=== PATIENT | female | born 1950 | race Caucasian/White ===

== ENCOUNTER 2021-02-09 08:11 | Day surgery (SDC) | payer MEDICARE, BC, OTHER ==
[~2021-02-09] VITALS: Ht 167.6 cm; Wt 62.6 kg
[2021-02-09] VITALS (8 sets, daily range): BP systolic 123–140; BP diastolic 69–87
[~2021-02-09 08:11] MED LIST: AMLO1TAB24 PO; CYAN500T14 PO; D31000TA2 PO; EFFE150C2 PO; LR 1,000 ML IV ONE; POTA10808 PO; SERO1TAB2 PO; TEST200I14 IM; XALA0.007 OU
[2021-02-09] MEDS ORDERED: ceFAZolin 1GM VIAL (J0690 PER 500MG) As Ordered ONE (08:27)
[2021-02-09] MEDS ORDERED: LIDOCAINE 2% 100MG/5ML SDV (FOR ANES.) As Ordered ONE (08:47)
[2021-02-09] MEDS ORDERED: ROCURONIUM BROMIDE 50 MG/5 ML VIAL As Ordered ONE ×3 (08:47→11:58)
[2021-02-09] MEDS ORDERED: propofoL 200 MG/20 ML VIAL As Ordered ONE (08:47)
[2021-02-09] MEDS ORDERED: dexameTHASONE 4 MG/ML 1ML VIAL (J1100 PER 1MG) As Ordered ONE (08:47)
[2021-02-09] MEDS ORDERED: ONDANSETRON 4MG/2ML VIAL As Ordered ONE (08:47)
[2021-02-09] MEDS ORDERED: MIDAZOLAM INJ 2MG/2ML VIAL (J2250 PER 1MG) As Ordered ONE (08:48)
[2021-02-09] MEDS ORDERED: fentaNYL 250 MCG/5 ML INJECTION (J3010) As Ordered ONE (08:48)
[2021-02-09] MEDS ORDERED: HEPARIN SOD (PORCINE) 5000UNITS/ML 1ML VIAL/SYRINGE SQ ONE (09:00)
[2021-02-09] MEDS ORDERED: ceFAZolin SOD 1 GM in D5W MINI-BAG PLUS 50 ML IV ONE (09:00)
[2021-02-09] MEDS ORDERED: BUPIVACAINE LIPOSOME/PF 1.3% 20ML VIAL (13.3MG/ML)(EXPAREL)(C9290 PER1MG) As Ordered ONE (09:38)
[2021-02-09] MEDS ORDERED: BACITRACIN PWD 50,000 UNITS VIAL As Ordered ONE (09:38)
[2021-02-09] MEDS ORDERED: LIDOCAINE 1% MDV 20ML VIAL As Ordered ONE (09:51)
[2021-02-09] MEDS ORDERED: EPINEPHrine INJ 1 MG/ML 1ML AMP As Ordered ONE (09:51)
[2021-02-09] MEDS ORDERED: HEPARIN SOD (PORCINE) 5000UNITS/ML 1ML VIAL/SYRINGE As Ordered ONE (10:42)
[2021-02-09] MEDS ORDERED: ePHEDrine SULFATE 25 MG/5 ML(5MG/ML) SYRINGE As Ordered ONE (11:39)
[2021-02-09] MEDS ORDERED: LABETALOL 100MG/20ML VIAL As Ordered ONE (12:05)
--- NOTE | 2021-02-09 14:04 | POST-OPPD ---
Postoperative Procedure Note Date Of Procedure: Feb 09, 2021 PREOPERATIVE DIAGNOSIS: Gender dysphoria, breast hypertrophy POSTOPERATIVE DIAGNOSIS: same FINDINGS: female chest distribution PROCEDURE: Chest masculinization procedure, bilateral subcutaneous mastectomies with suction assisted lipectomy and free nipple graft. SURGEON: Dr De Jesus ANESTHESIA: General SPECIMENS: Right breast 417gm, Left breast 419 gm ESTIMATED BLOOD LOSS: 50cc REPLACED: none DRAINS: 10 mm ADEBAYO x 2 COMPLICATIONS: none POSTOPERATIVE CONDITION: stable DEDRA DE JESUS DO Feb 09, 2021 14:04
[2021-02-09] MEDS ORDERED: HYDROMORPHONE HCL 0.5 MG/ 0.5 ML SYRINGE (J1170 PER 1) IV PRN (14:05)
[2021-02-09] MEDS ORDERED: oxyCODONE 5MG TAB PO PRN (14:05)
[2021-02-09] MEDS ORDERED: fentaNYL 100 MCG/2 ML INJECTION (J3010) IV PRN (14:05)
[2021-02-09] MEDS ORDERED: KETOROLAC TROMETHAMINE 10 MG TAB PO PRN (14:05)
[2021-02-09] MEDS ORDERED: ONDANSETRON 4MG/2ML VIAL IV PRN ×2 (14:05)
[2021-02-09] MEDS ORDERED: traMADol 50 MG TAB PO PRN (14:05)
[2021-02-09] MEDS ORDERED: LR 1,000 ML IV SCH (14:05)
[2021-02-09] MEDS ORDERED: ACETAMINOPHEN TAB 650MG DOSE (2X325MG) PO PRN (14:05)
--- NOTE | 2021-02-09 14:05 | ROOPDOC ---
[facility] Report Of Operation Report of Operation DATE OF PROCEDURE: 02/09/21 PREOPERATIVE DIAGNOSIS: Gender dysphoria, breast hypertrophy POSTOPERATIVE DIAGNOSIS: same FINDINGS: female chest distribution PROCEDURE: Chest masculinization procedure, bilateral subcutaneous mastectomies with suction assisted lipectomy and free nipple graft. SURGEON: Dr De Jesus ANESTHESIA: General SPECIMENS: Right breast 417gm, Left breast 419 gm ESTIMATED BLOOD LOSS: 50cc REPLACED: none DRAINS: 10 mm ADEBAYO x 2 COMPLICATIONS: none POSTOPERATIVE CONDITION: stable DESCRIPTION OF PROCEDURE: This is a 70-year-old transgender male who would like to have chest masculinization procedure. Patient fits the criteria for the procedure. He has stopped testosterone 3 weeks ago. Risks, benefits, and alternatives were discussed with the patient in detail, and he is ready to proceed. The day of surgery, he was marked in the upright position and informed consent was obtained. He measured any 19 cm from sternal notch to nipple on both sides, IMF at 25 cm bilaterally. Patient was marked according to double incision subcutaneous mastectomy. He was brought into the operating room and placed in the supine position. Preoperative antibiotics and 5000 units heparin subcutaneous were given. Sequential pneumatic stocking were placed on the lower calves. General anesthesia was induced. He was prepped and draped in the usual sterile fashion. We started our procedure on the right side. Nipple areolar complex was outlined 20 mm in diameter. Superior incision carried out followed by the inframammary incision. Dissection continued by undermining the flap with thick edges from the superior incision toward the midportion of the pectoralis major, then the breast was removed along the pectoralis fascia. Inframammary groove was obliterated, to smooth out the chest appearance. Total weight on the right side is 417 grams. Hemostasis was obtained using electrocautery. We used Exparel 8 cc for local anesthesia to infiltrate in the Pectoralis muscle. Started closing the flap with interrupted 0 Vicryl sutures. 10 mm Tejas-Benton drain was placed through the lateral part of the horizontal scar. 100 mL of tumescent solution was infiltrated on the lateral chest and medial part of the incision. VASER liposuction carried out on both areas followed by suction-assisted lipectomy to smooth out the contour of the lateral chest and medial breast. Then we turn our attention to the left side. Nipple areolar complex was outlined 20 mm in diameter. Superior incision carried out followed by the inframammary incision. Dissection continued by undermining the flap with thick edges from the superior incision toward the midportion of the pectoralis major, then the breast was removed along the pectoralis fascia. Inframammary groove was obliterated, to smooth out the chest appearance. Total weight on the right side is 419 grams. Hemostasis was obtained using electrocautery. We used Exparel 8 cc for local anesthesia to infiltrate in the Pectoralis muscle. Started closing the flap with interrupted 0 Vicryl sutures. 10 mm Tejas-Benton drain was placed through the lateral part of the horizontal scar. 100 mL of tumescent solution was infiltrated on the lateral chest and medial part of the incision. VASER liposuction carried out on both areas followed by suction-assisted lipectomy to smooth out the contour of the lateral chest and medial breast. Breast tissue removed was stored on the sterile table. At this point we harvested the nipple areolar complex from each breast. Tissue was defatted and transferred to a chest as a free graft. Location of the nipple is 2.4 cm from inframammary line. Skin opening was made 1.5 x 2.4 cm in oblong overall shape. Nipple areolar complex graft was secured in place with interrupted 4-0 and 5-0 chromic sutures. Bolster dressing was applied and secured in place with 4-0 nylon sutures. Remaining Exparel injected in the horizontal incision. Total Exparel use 16 cc. Resected tissue sent to pathology in two specimens right and left breast tissue. Dressings were applied to vertical and horizontal incision: Prineo, bulky dressing and binder. Patient was extubated in the operating room without difficulty and was transferred to the recovery room in stable condition. DEDRA DE JESUS DO Feb 09, 2021 14:05
[2021-02-09] MEDS: LR 1,000 ML IV SCH (16:25)
[2021-02-09] MEDS: VITAMIN D 1,000 INTERNATIONAL UNITS TABLET PO SCH (16:26)
[2021-02-09] MEDS: VENLAFAXINE **XR** 75MG CAPSULE PO SCH (16:26)
[2021-02-09] MEDS: CYANOCOBALAMIN 500 MCG TAB PO SCH (16:27)
[2021-02-09] MEDS ORDERED: LATANOPROST 0.005% OPHTH SOLN 2.5 ML OU SCH (21:00)
[2021-02-09] MEDS ORDERED: QUEtiapine FUMARATE 100 MG TAB PO SCH (21:00)
[2021-02-09] MEDS ORDERED: amLODIPine 5 MG TAB PO SCH (21:00)
[2021-02-10 02:00] VITALS: BP 104/60
[2021-02-10] MEDS: LR 1,000 ML IV SCH (02:00)
[2021-02-10 02:16] VITALS: BP 100/59
[2021-02-10 06:00] VITALS: BP 103/59
[2021-02-10] MEDS: CYANOCOBALAMIN 500 MCG TAB PO SCH (07:50)
[2021-02-10] MEDS: VENLAFAXINE **XR** 75MG CAPSULE PO SCH (07:50)
[2021-02-10] MEDS: VITAMIN D 1,000 INTERNATIONAL UNITS TABLET PO SCH (07:50)
--- NOTE | 2021-02-10 09:25 | IPNPDOC ---
Subjective General Date Seen: Feb 10, 2021 Subject Chief Complaint/History The patient is a 70-year-old female admitted with a reason for visit of Gender Dysphoria, Bilateral Breast Hypertrophy. Patient s/p TOP surgery POD 1. Feeling well. Pain minimal, controlled with Tramadol. Ambulating, tolerating diet. Current Medications Current Medications Current Medications Medications (Trade) Dose Ordered Sig/Bernardino Route PRN Reason Start Time Stop Time Status Last Admin Dose Admin Acetaminophen (Tylenol Tab) 650 mg Q6H PRN PO MILD PAIN (PS 1-4) 02/09/21 14:05 Amlodipine Besylate (Norvasc) 5 mg QHS PO 02/09/21 21:00 02/09/21 21:38 Cyanocobalamin (Vitamin B12) 1,000 mcg DAILY PO 02/09/21 09:00 02/10/21 07:50 Fentanyl Citrate (Sublimaze) 25 mcg Q5MP PRN IV PAIN LEVEL 5-10 02/09/21 14:05 02/09/21 15:06 DC Hydromorphone HCl (Dilaudid) 0.2 mg Q5MP PRN IV PAIN LEVEL 4-7 02/09/21 14:05 02/09/21 15:06 DC Ketorolac Tromethamine (ToRADol) 10 mg Q6HP PRN PO MODERATE PAIN (PS 5-7) 02/09/21 14:05 02/14/21 14:04 Lactated Ringer's 1,000 ml @ 75 mls/hr [id number] IV 02/09/21 14:05 02/10/21 02:00 Lactated Ringer's 1,000 ml @ 100 mls/hr Q10H IV 02/09/21 14:05 02/09/21 15:06 DC 02/09/21 13:46 Latanoprost (Xalatan 0.005% Op Soln) 1 drop QPM OU 02/09/21 21:00 02/09/21 21:37 Ondansetron HCl (ZOFRAN INJection) 4 mg Q4H PRN IV NAUSEA OR VOMITING 02/09/21 14:05 Ondansetron HCl (ZOFRAN INJection) 4 mg Q4HP PRN IV NAUSEA OR VOMITING 02/09/21 14:05 02/09/21 15:06 DC Oxycodone HCl (Roxicodone, Oxyir) 5 mg ASDIRECTED PRN PO PAIN LEVEL 1-4 02/09/21 14:05 02/09/21 15:06 DC Quetiapine Fumarate (SEROquel) 300 mg QHS PO 02/09/21 21:00 02/09/21 21:37 Tramadol HCl (Ultram) 50 mg Q6HP PRN PO MODERATE PAIN (PS 5-7) 02/09/21 14:05 02/10/21 06:55 Venlafaxine HCl (Effexor Xr) 150 mg QAM PO 02/09/21 09:00 02/10/21 07:50 Vitamin D (Vitamin D) 1,000 units DAILY PO 02/09/21 09:00 02/10/21 07:50 Allergies Coded Allergies: codeine (Verified Adverse Reaction, Intermediate, GI upset, 02/08/21) Objective Physical Examination Examination GENERAL APPEARANCE:Patient seen, laying in bed, awake, alert, and oriented. Comfortable, in no acute distress. SKIN: Warm and moist. BREAST: Right and left soft, non-tender incisions intact. ADEBAYO drains: R 20/L80 cc/24 hr. Right side with lateral chest ecchymosis, stable. Left side with more extensive ecchymosis. No palpable expending hematoma on the anterior chest, ecchymosis lateral chest, non expanding, NAC: (free nipple) with bolster dressing in place. HEENT: Normocephalic, atraumatic. [place] palpebral conjunctiva, anicteric sclerae. Lips and mucosa appear moist. LUNGS: Clear to auscultation bilaterally. No wheezing appreciated. HEART: No chest wall abnormalities. Regular rate and rhythm with no murmurs appreciated. ABDOMEN: Abdomen is soft, non-tender, non-distended. EXTREMITIES: No edema identified. No calf tenderness. Vital Signs Vital Signs Date Time Temp Pulse Resp B/P (MAP) Pulse Ox O2 Delivery O2 Flow Rate FiO2 02/10/21 07:25 16 02/10/21 06:00 98.2 88 103/59 (74) 91 Room Air 02/09/21 20:30 2.0 I&Os I&O- Last 24 Hours up to 6 AM 02/10/21 06:00 Intake Total 4270 ml Output Total 632 ml Balance 3638 ml Impression S/p chest masculinization surgery with bilateral subcutaneous mastectomies, lateral chest wall liposuction and free nipple graft POD 1. Hb 9.3 Dressings changed. Instructions given. Stable for discharge F/up plastic surgery Monitor drains Rx for Tramadol, Iron. Plan / VTE VTE Prophylaxis Ordered?: Yes DEDRA DE JESUS DO Feb 10, 2021 09:25
[2021-02-10 09:49] LABS: HEMATOCRIT 27.7 % (36.0-47.0); HEMOGLOBIN 9.3 g/dl (12.0-15.5); MEAN CORPUSCULAR HEMOGLOBIN 35.2 pg (27.0-33.0); MEAN CORPUSCULAR HGB CONC 33.6 g/dl (32.0-36.5); MEAN CORPUSCULAR VOLUME 104.9 fl (80.0-96.0); PLATELET COUNT, AUTOMATED 201 10^3/uL (150-450); RED BLOOD COUNT 2.64 10^6/uL (4.00-5.40); WHITE BLOOD COUNT 7.4 10^3/uL (4.0-10.0)
[2021-02-10 10:00] VITALS: BP 110/67
[2021-02-10] MEDS ORDERED: TRAM50TA2 PO (10:17)
[2021-02-10] MEDS ORDERED: FERR325T3 PO (10:59)
[2021-02-10] MEDS ORDERED: COLA100C5 PO (10:59)
[2021-02-11] MEDS ORDERED: SUGAMMADEX SODIUM 500 MG/5 ML VIAL (BRIDION) As Ordered ONE (15:06)
[2021-02-11] MEDS ORDERED: propofoL 200 MG/20 ML VIAL As Ordered ONE (15:06)
[2021-02-11] MEDS ORDERED: dexameTHASONE 4 MG/ML 1ML VIAL (J1100 PER 1MG) As Ordered ONE ×2 (15:06→16:09)
[2021-02-11] MEDS ORDERED: ONDANSETRON 4MG/2ML VIAL As Ordered ONE (15:06)
[2021-02-11] MEDS ORDERED: ROCURONIUM BROMIDE 50 MG/5 ML VIAL As Ordered ONE (15:06)
[2021-02-11] MEDS ORDERED: LIDOCAINE 2% 100MG/5ML SDV (FOR ANES.) As Ordered ONE (15:06)
[2021-02-11] MEDS ORDERED: MIDAZOLAM INJ 2MG/2ML VIAL (J2250 PER 1MG) As Ordered ONE (15:07)
[2021-02-11] MEDS ORDERED: fentaNYL 100 MCG/2 ML INJECTION (J3010) As Ordered ONE (15:07)
[2021-02-11] MEDS ORDERED: KETOROLAC 60MG 2ML VIAL As Ordered ONE (16:09)
[2021-02-11] MEDS ORDERED: ACETAMINOPHEN 1000MG 100ML IV BTL (OFIRMEV) (J0131 PER 10MG) As Ordered ONE (16:10)
[2021-02-11] MEDS ORDERED: TRAM50TA2 PO (19:23)
[2021-02-11] MEDS ORDERED: COLA100C5 PO (19:23)
[2021-02-11] MEDS ORDERED: FERR1TAB8 PO (19:23)
== END 2021-02-10 13:00 | disposition home or self-care (01) ==
LOC: M SDC 08:11 → M MS5PR 15:05 → M SDC 02-10 13:00
PROVIDERS: ATTEND Plastic Surgery Surgery of the Hand
DX: F64.9 Gender identity disorder, unspecified (principal); N62 Hypertrophy of breast; N64.81 Ptosis of breast; I10 Essential (primary) hypertension; F32.9 Major depressive disorder, single episode, unspecified; M75.21 Bicipital tendinitis, right shoulder; M77.11 Lateral epicondylitis, right elbow; M79.645 Pain in left finger(s); Z88.5 Allergy status to narcotic agent; Z79.899 Other long term (current) drug therapy
CPT/HCPCS: 19318; 19350; 36415; 85027; 88300; 88304; C9290; J0171; J0690; J1100; J1644; J2250; J2405; J3010

== ENCOUNTER 2021-02-11 11:07 | Observation (INO) | payer MEDICARE, BC, OTHER ==
[~2021-02-11] VITALS: Ht 167.6 cm; Wt 66.5 kg
[~2021-02-11 11:07] MED LIST changes: +COLA100C5 PO; +FERR325T3 PO; -LR 1,000 ML IV ONE; +TRAM50TA2 PO
[2021-02-11] MEDS ORDERED: NS 500 ML IV ONE (11:25)
[2021-02-11 12:11] LABS: BASO # 0.1 10^3/uL (0.0-0.2); BASO % 0.8 % (0.0-1.0); EOS # 0.1 10^3/uL (0.0-0.5); EOS % 1.6 % (0.0-3.0); HEMATOCRIT 27.9 % (36.0-47.0); LYMPH # 1.7 10^3/uL (1.5-5.0); MEAN CORPUSCULAR HEMOGLOBIN 34.2 pg (27.0-33.0); MEAN CORPUSCULAR HGB CONC 32.3 g/dl (32.0-36.5); MEAN CORPUSCULAR VOLUME 106.1 fl (80.0-96.0); MONO # 0.5 10^3/uL (0.0-0.8); MONO % 8.4 % (2.0-8.0); NEUTROPHILS # 3.8 10^3/uL (1.5-8.5); PLATELET COUNT, AUTOMATED 203 10^3/uL (150-450); RED BLOOD COUNT 2.63 10^6/uL (4.00-5.40); WHITE BLOOD COUNT 6.2 10^3/uL (4.0-10.0)
[2021-02-11 12:48] LABS: ALBUMIN 3.7 GM/DL (3.2-5.2); ALT/SGPT 24 U/L (12-78); BILIRUBIN,TOTAL 0.3 MG/DL (0.2-1.0); BLOOD UREA NITROGEN 15 MG/DL (7-18); CALCIUM LEVEL 9.5 MG/DL (8.8-10.2); CARBON DIOXIDE LEVEL 31 MEQ/L (21-32); CHLORIDE LEVEL 106 MEQ/L (98-107); CREATININE FOR GFR 0.85 MG/DL (0.55-1.30); GLOMERULAR FILTRATION RATE > 60.0 (>45); GLUCOSE, FASTING 112 MG/DL (70-100); POTASSIUM SERUM 4.3 MEQ/L (3.5-5.1); SODIUM LEVEL 140 MEQ/L (136-145); TOTAL PROTEIN 6.2 GM/DL (6.4-8.2)
--- NOTE | 2021-02-11 14:14 | HPEPDOC ---
Plastic Surgery [facility] & [facility] Date of Admission Feb 11, 2021 History and Physical CHIEF COMPLAINT: Left breast pain HISTORY OF PRESENT ILLNESS: 70 y/o transgender male s/p chest masculinization surgery 02/09/21, discharged 02/10/21. Patient noticed this morning that left drain is not draining and left chest is getting larger and more painful. He was instructed by me to come in to ER for evaluation with possible admission and possible wash out. Seen and examined in ED. feeling well. No nausea, vomiting, CP, SOB. Left chest feels with reproducible pressure. Dressing in place. ALLERGIES: Please see below. HOME MEDICATIONS: Please see below. PAST MEDICAL HISTORY: Gender dysphoria HTN Breast hypertrophy PAST SURGICAL HISTORY: Chest masculinization procedure. PERSONAL/SOCIAL HISTORY: Denies smoking, alcohol use, or recreational drug use. REVIEW OF SYSTEMS: GENERAL: Denies chills, fatigue, fever, weight gain and weight loss. HEENT: Denies blurred vision and double vision. Denies ear symptoms. Denies hoarseness. NECK: Denies any neck pain. CARDIOVASCULAR: Denies chest pain and palpitations. MUSCULOSKELETAL: Denies arthralgias, back pain and thrombophlebitis. SKIN: Denies rash. Left chest hematoma NEUROLOGIC: Denies headache, stroke and transient ischemic attack. PSYCHIATRIC: Denies anxiety and depression. ENDOCRINE: Denies thyroid disease. HEMATOLOGY/ONCOLOGY: Denies any bleeding or clotting disorder. HEART: Denies any chest pains, palpitations, paroxysmal dyspnea, orthopnea. PULMONARY: Denies chronic cough, dyspnea and wheezing. GASTROINTESTINAL: Denies rectal bleeding, family history of colon cancer, constipation, diarrhea, dysphagia, heartburn and jaundice. GENITOURINARY: Denies dysuria, frequency, hematuria and nocturia. ENDOCRINE: Denies polydipsia, polyphagia, polyuria, heat or cold intolerance. INFECTIOUS: Denies any recent upper respiratory tract infection, UTI, need for use of antibiotics. NUTRITION: Reports good appetite. PHYSICAL EXAMINATION: VITAL SIGNS: Please see below. GENERAL APPEARANCE: Patient seen at bedside, appears comfortable. Awake, alert, oriented. HEENT: Normocephalic, atraumatic. [place] palpebral conjunctivae. Anicteric sclerae. Lips moist. CHEST: No chest wall abnormalities. Normal respiratory motion/effort. NECK: Supple. No thyromegaly. No lymphadenopathies. LUNGS: Lung sounds are clear to auscultation bilaterally. No wheezing appreciated. HEART: No chest wall abnormalities. Heart rate and rhythm are regular with no murmurs. ABDOMEN: Abdomen is soft, non-tender, non-distended. SKIN: Warm, moist. BREAST: Post mastectomy incisions intact. Significant ecchymosis left chest, tracking to left arm and left lateral chest. Palpable fullness left breast. Bolster dressings in place for free nipple grafts. Right side soft, expected minimal ecchymosis. EXTREMITIES: Extremities have no deformities. No edema identified. LABORATORY DATA: Please see below. MICROBIOLOGY: Please see below. IMPRESSION AND PLAN: Gender dysphoria. S/p chest masculinization procedure 02/09/21 with left chest hematoma. H/H stable NPO at 7 am today. OR for exploration, irrigation and evacuation hematoma left chest. Risks, benefits and alternatives discussed with patient. Ready to proceed. Vital Signs Vital Signs Date Time Temp Pulse Resp B/P (MAP) Pulse Ox O2 Delivery O2 Flow Rate FiO2 02/11/21 12:28 02/11/21 11:09 96.7 80 18 99 Room Air Laboratory Data Labs 24H Laboratory Tests 2 02/11/21 11:25: Immature Granulocyte % (Auto) 0.2, Neutrophils (%) (Auto) 61.0, Lymphocytes (%) (Auto) 28.0, Monocytes (%) (Auto) 8.4H, Eosinophils (%) (Auto) 1.6, Basophils (%) (Auto) 0.8, Neutrophils # (Auto) 3.8, Lymphocytes # (Auto) 1.7, Monocytes # (Auto) 0.5, Eosinophils # (Auto) 0.1, Basophils # (Auto) 0.1, Nucleated Red Blood Cells % (auto) 0.0, Anion Gap 3L, Glomerular Filtration Rate > 60.0, Calcium Level 9.5, Total Bilirubin 0.3, Aspartate Amino Transf (AST/SGOT) 19, Alanine Aminotransferase (ALT/SGPT) 24, Alkaline Phosphatase 53, Total Protein 6.2L, Albumin 3.7, Albumin/Globulin Ratio 1.5 CBC/BMP Laboratory Tests 02/11/21 11:25 Home Medications Scheduled Amlodipine Besylate (Amlodipine Besylate) 5 Mg Tablet, 5 MG PO QHS, (Reported) Cholecalciferol (Vitamin D3) (Vitamin D3) 1,000 Unit Tablet, 1,000 UNITS PO DAILY, (Reported) Cyanocobalamin (Vitamin B-12) (Vitamin B-12) 500 Mcg Tablet, 1,000 MCG PO DAILY, (Reported) Ferrous Sulfate (Ferrous Sulfate) 325 Mg Tablet.dr, 325 MG PO BID Latanoprost (Xalatan) 0.005% 2.5ML Drops, 1 DROP OU QPM, (Reported) Potassium Citrate (Potassium Citrate 10MEQ (Urocit-K)) 10 Meq Tablet.er, 2 TAB PO BID, (Reported) 1080MG = 10MEQ Quetiapine Fumarate (Seroquel) 300 Mg Tablet, 300 MG PO QHS, (Reported) Testosterone Cypionate (Testosterone Cypionate) 200 Mg/1 Ml Vial, Unknown Dose IM QWEEK, (Reported) Venlafaxine HCl (Effexor Xr) 150 Mg Cap.er.24h, 150 MG PO QAM, (Reported) Scheduled PRN Docusate Sodium (Colace) 100 Mg Capsule, 100 MG PO BIDP PRN for CONSTIPATION Tramadol HCl (Tramadol HCl) 50 Mg Tablet, 50 MG PO Q6HP PRN for MODERATE PAIN (PS 5-7) Allergies Coded Allergies: codeine (Verified Adverse Reaction, Intermediate, GI upset, 02/08/21) A-FIB/CHADSVASC A-FIB History Current/History of A-Fib/PAF?: No Current PO Anticoag Therapy: No Age/Risk Factor Scoring CHADSVASC: CHADSVASC Response (Comments) Value Age Risk Factor Age 65-74 years old 1 Gender Risk Factor Female 1 Hx of CHF No 0 Hx of HTN Yes 1 Hx of Stroke/TIA/or VTE No 0 Hx of Diabetes No 0 Hx of Vascular Disease No 0 Total 3 Treatment Reason Anticoagulant not given: Current bleeding DEDRA DE JESUS DO Feb 11, 2021 14:14
[2021-02-11] MEDS: LR 1,000 ML IV SCH ×3 (14:15→19:20)
[2021-02-11 15:09] LABS: RSV AMPLIFICATION NEGATIVE (NEGATIVE)
[2021-02-11] MEDS ORDERED: ceFAZolin 1GM VIAL (J0690 PER 500MG) As Ordered ONE (16:03)
--- NOTE | 2021-02-11 16:49 | POST-OPPD ---
Postoperative Procedure Note Date Of Procedure: Feb 11, 2021 PREOPERATIVE DIAGNOSIS: Left breast hematoma. POSTOPERATIVE DIAGNOSIS: same FINDINGS: Left breast hematoma PROCEDURE: Left breast exploration, irrigation and evacuation hematoma left breast. SURGEON: Dr De Jesus ANESTHESIA: General SPECIMENS: Left breast hematoma ESTIMATED BLOOD LOSS: hematoma only 300cc REPLACED: none DRAINS: 10 mm ADEBAYO drain COMPLICATIONS: none POSTOPERATIVE CONDITION: stable DEDRA DE JESUS DO Feb 11, 2021 16:49
--- NOTE | 2021-02-11 16:50 | ROOPDOC ---
[facility] Report Of Operation Report of Operation DATE OF PROCEDURE: 02/11/21 PREOPERATIVE DIAGNOSIS: Left breast hematoma. POSTOPERATIVE DIAGNOSIS: same FINDINGS: Left breast hematoma PROCEDURE: Left breast exploration, irrigation and evacuation hematoma left breast. SURGEON: Dr De Jesus ANESTHESIA: General SPECIMENS: Left breast hematoma ESTIMATED BLOOD LOSS: hematoma only 300cc REPLACED: none DRAINS: 10 mm ADEBAYO drain COMPLICATIONS: none POSTOPERATIVE CONDITION: stable This is a 70-year-old transgender male status post chest masculinization procedure on February 09. Patient developed hematoma on the left breast. Scheduled today for left breast exploration, irrigation and evacuation of hematoma. Risks, benefits and alteratives discussed with patient. He is ready to proceed. He was brought into the operating room, placed in supine position, perioperative antibiotics given, general anesthesia is induced. He was prepped and draped in the usual sterile fashion. We opened lateral part of inferior incision on the left chest. Blunt dissection through subcuticular tissue was done, hematoma identified. Hematoma evacuated throughout the left breast. The wound is irrigated with 3 L of normal saline solution. The pocket explored under direct vision and no active bleeding identified. A new 10 mm Tejas-Benton drain was introduced in the cavity and incision closed with interrupted 0 Vicryl, 3-0 Monocryl sutures. Complete symmetry with Right side achieved. Prinio dressing applied, bulky gauze and ROHIT compressive dressing. Patient extubated in operating room without difficulties and transferred to recovery room in stable condition. DEDRA DE JESUS DO Feb 11, 2021 16:50
[2021-02-11] MEDS ORDERED: traMADol 50 MG TAB PO PRN (16:55)
[2021-02-11] MEDS ORDERED: MEPERIDINE INJ 25 MG/ML VIAL (J2175) As Ordered ONE (17:06)
[2021-02-11] MEDS ORDERED: ONDANSETRON 4MG/2ML VIAL IV PRN ×2 (17:10→19:15)
[2021-02-11] MEDS ORDERED: fentaNYL 100 MCG/2 ML INJECTION (J3010) IV PRN ×2 (17:10→19:15)
[2021-02-11] MEDS ORDERED: HYDROMORPHONE HCL 0.5 MG/ 0.5 ML SYRINGE (J1170 PER 1) IV PRN ×2 (17:10→19:15)
[2021-02-11] MEDS ORDERED: oxyCODONE 5MG TAB PO PRN ×2 (17:10→19:15)
[2021-02-11] MEDS ORDERED: MEPERIDINE INJ 25 MG/ML VIAL (J2175) IV PRN ×2 (17:10→19:15)
[2021-02-11] MEDS ORDERED: LR 1,000 ML IV SCH (17:10)
[2021-02-11 17:31] LABS: HEMATOCRIT 26.3 % (36.0-47.0); HEMOGLOBIN 8.4 g/dl (12.0-15.5); MEAN CORPUSCULAR HEMOGLOBIN 34.1 pg (27.0-33.0); MEAN CORPUSCULAR HGB CONC 31.9 g/dl (32.0-36.5); MEAN CORPUSCULAR VOLUME 106.9 fl (80.0-96.0); PLATELET COUNT, AUTOMATED 168 10^3/uL (150-450); RED BLOOD COUNT 2.46 10^6/uL (4.00-5.40); WHITE BLOOD COUNT 6.7 10^3/uL (4.0-10.0)
[2021-02-11 19:00] VITALS: BP 134/74
[2021-02-11] MEDS ORDERED: FERR1TAB8 PO (19:23)
[2021-02-11] MEDS ORDERED: TRAM50TA2 PO (19:23)
[2021-02-11] MEDS ORDERED: COLA100C5 PO (19:23)
[2021-02-11 19:44] VITALS: BP 130/71
[2021-02-11 20:46] VITALS: BP 122/68
[2021-02-11] MEDS ORDERED: LATANOPROST 0.005% OPHTH SOLN 2.5 ML OU SCH (21:00)
[2021-02-11] MEDS ORDERED: QUEtiapine FUMARATE 100 MG TAB PO SCH (21:00)
[2021-02-11] MEDS ORDERED: amLODIPine 5 MG TAB PO SCH (21:00)
[2021-02-11 21:07] VITALS: BP 122/68
[2021-02-11] MEDS: FERROUS SULFATE 325MG TAB PO SCH (21:07)
[2021-02-11 21:22] VITALS: BP 92/57
[2021-02-11 22:39] VITALS: BP 100/53
[2021-02-12] VITALS (9 sets, daily range): BP systolic 116–144; BP diastolic 67–82
[2021-02-12] MEDS: LR 1,000 ML IV SCH ×2 (00:15→06:03)
[2021-02-12] MEDS: KETOROLAC TROMETHAMINE 10 MG TAB PO PRN ×2 (04:01→14:26)
[2021-02-12] MEDS ORDERED: VENLAFAXINE **XR** 75MG CAPSULE PO SCH (09:00)
[2021-02-12] MEDS: FERROUS SULFATE 325MG TAB PO SCH (09:01)
[2021-02-12 09:21] LABS: HEMOGLOBIN 7.8 g/dl (12.0-15.5); MEAN CORPUSCULAR HEMOGLOBIN 34.8 pg (27.0-33.0); MEAN CORPUSCULAR HGB CONC 32.5 g/dl (32.0-36.5); MEAN CORPUSCULAR VOLUME 107.1 fl (80.0-96.0); PLATELET COUNT, AUTOMATED 178 10^3/uL (150-450); RED BLOOD COUNT 2.24 10^6/uL (4.00-5.40); WHITE BLOOD COUNT 6.5 10^3/uL (4.0-10.0)
--- NOTE | 2021-02-12 09:29 | IPNPDOC ---
Subjective General Date Seen: Feb 12, 2021 Subject Chief Complaint/History The patient is a 70-year-old transgender male admitted with a reason for visit of Breast Hypertrophy, Gender Dysphoria, Pos-Op Compl.. Patient with left breast hematoma evacuation last night. Feeling well today. Pain controlled. Current Medications Current Medications Current Medications Medications (Trade) Dose Ordered Sig/Bernardino Route PRN Reason Start Time Stop Time Status Last Admin Dose Admin Amlodipine Besylate (Norvasc) 5 mg QHS PO 02/11/21 21:00 02/11/21 21:07 Fentanyl Citrate (Sublimaze) 25 mcg Q5MP PRN IV PAIN LEVEL 5-10 02/11/21 17:10 02/11/21 18:10 DC Fentanyl Citrate (Sublimaze) 25 mcg Q5MP PRN IV PAIN LEVEL 5-10 02/11/21 19:15 02/11/21 20:15 DC Ferrous Sulfate (Ferrous Sulfate) 325 mg BID PO 02/11/21 21:00 02/12/21 09:01 Home Med (Med Rec Complete!) ASDIRECTED XX 02/11/21 19:25 02/11/21 19:51 DC Hydromorphone HCl (Dilaudid) 0.2 mg Q5MP PRN IV PAIN LEVEL 4-7 02/11/21 17:10 02/11/21 18:10 DC 02/11/21 17:48 Hydromorphone HCl (Dilaudid) 0.2 mg Q5MP PRN IV PAIN LEVEL 4-7 02/11/21 19:15 02/11/21 20:15 DC Ketorolac Tromethamine (ToRADol) 10 mg Q6HP PRN PO PAIN LEVEL 4-7 02/11/21 16:55 02/16/21 16:54 02/12/21 04:01 Lactated Ringer's 1,000 ml @ 100 mls/hr Q10H IV 02/11/21 14:15 02/12/21 06:03 Lactated Ringer's 1,000 ml @ 100 mls/hr Q10H IV 02/11/21 17:10 02/11/21 18:10 DC Lactated Ringer's 1,000 ml @ 100 mls/hr Q10H IV 02/11/21 19:15 02/11/21 20:15 DC Latanoprost (Xalatan 0.005% Op Soln) 1 drop QHS OU 02/11/21 21:00 02/11/21 21:07 Meperidine HCl (Demerol) 12.5 mg Q5MP PRN IV SHIVERING 02/11/21 17:10 02/11/21 18:10 DC 02/11/21 17:17 Meperidine HCl (Demerol) 12.5 mg Q5MP PRN IV SHIVERING 02/11/21 19:15 02/11/21 20:15 DC Ondansetron HCl (ZOFRAN INJection) 4 mg Q4HP PRN IV NAUSEA OR VOMITING 02/11/21 17:10 02/11/21 18:10 DC 02/11/21 17:26 Ondansetron HCl (ZOFRAN INJection) 4 mg Q4HP PRN IV NAUSEA OR VOMITING 02/11/21 19:15 02/11/21 20:15 DC Oxycodone HCl (Roxicodone, Oxyir) 5 mg ASDIRECTED PRN PO PAIN LEVEL 1-4 02/11/21 17:10 02/11/21 18:10 DC 02/11/21 17:26 Oxycodone HCl (Roxicodone, Oxyir) 5 mg ASDIRECTED PRN PO PAIN LEVEL 1-4 02/11/21 19:15 02/11/21 20:15 DC Quetiapine Fumarate (SEROquel) 300 mg QHS PO 02/11/21 21:00 02/11/21 21:07 Tramadol HCl (Ultram) 50 mg Q4HP PRN PO PAIN LEVEL 7-10 02/11/21 16:55 Venlafaxine HCl (Effexor Xr) 150 mg DAILY PO 02/12/21 09:00 02/12/21 09:02 Allergies Coded Allergies: codeine (Verified Adverse Reaction, Intermediate, GI upset, 02/08/21) Objective Physical Examination Examination GENERAL APPEARANCE:Patient seen, laying in bed, awake, alert, and oriented. Comfortable, in no acute distress. SKIN: Warm and moist. BREAST: Right and left soft, non-tender incisions intact. ADEBAYO drains: R 5cc L 10 cc/24 hr. NAC: with bolster dressing. Flaps viable, soft. Ecchymosis improving. No expanding hematoma. Left lateral chest wall ecchymosis stable, lightening up. LUNGS: Clear to auscultation bilaterally. No wheezing appreciated. HEART: No chest wall abnormalities. Regular rate and rhythm with no murmurs appreciated. ABDOMEN: Abdomen is soft, non-tender, non-distended. EXTREMITIES: No edema identified. No calf tenderness. Vital Signs Vital Signs Date Time Temp Pulse Resp B/P (MAP) Pulse Ox O2 Delivery O2 Flow Rate FiO2 02/12/21 06:06 97.5 78 18 117/67 (84) 94 Nasal Cannula 2.0 I&Os I&O- Last 24 Hours up to 6 AM 02/12/21 05:59 Intake Total 2495 ml Output Total 6 ml Balance 2489 ml Laboratory Data Labs 24H Laboratory Tests 2 02/11/21 11:25: Immature Granulocyte % (Auto) 0.2, Neutrophils (%) (Auto) 61.0, Lymphocytes (%) (Auto) 28.0, Monocytes (%) (Auto) 8.4H, Eosinophils (%) (Auto) 1.6, Basophils (%) (Auto) 0.8, Neutrophils # (Auto) 3.8, Lymphocytes # (Auto) 1.7, Monocytes # (Auto) 0.5, Eosinophils # (Auto) 0.1, Basophils # (Auto) 0.1, Nucleated Red B lood Cells % (auto) 0.0, Anion Gap 3L, Glomerular Filtration Rate > 60.0, Calcium Level 9.5, Total Bilirubin 0.3, Aspartate Amino Transf (AST/SGOT) 19, Alanine Aminotransferase (ALT/SGPT) 24, Alkaline Phosphatase 53, Total Protein 6.2L, Albumin 3.7, Albumin/Globulin Ratio 1.5 02/11/21 14:01: Coronavirus (COVID-19)(PCR) NEGATIVE, Influenza Type A (RT-PCR) NEGATIVE, Influenza Type B (RT-PCR) NEGATIVE, Respiratory Syncytial Virus (PCR) NEGATIVE 02/11/21 17:21: Nucleated Red Blood Cells % (auto) 0.0 02/12/21 08:56: Nucleated Red Blood Cells % (auto) 0.0 CBC/BMP Laboratory Tests 02/11/21 11:25 02/11/21 17:21 02/12/21 08:56 Impression S/p chest masculinization procedure, hematoma evacuation left breast POD 1. Patient feeling well. Hg 7.8 this morning. Transfuse 2 units before discharge. Flaps viable. Will continue monitoring. Plan / VTE VTE Prophylaxis Ordered?: Yes DEDRA DE JESUS DO Feb 12, 2021 09:29
[2021-02-12 15:57] LABS: HEMATOCRIT 31.3 % (36.0-47.0); MEAN CORPUSCULAR HEMOGLOBIN 32.9 pg (27.0-33.0); MEAN CORPUSCULAR HGB CONC 32.6 g/dl (32.0-36.5); PLATELET COUNT, AUTOMATED 180 10^3/uL (150-450); WHITE BLOOD COUNT 7.6 10^3/uL (4.0-10.0)
[2021-02-12 15:59] LABS: HEMOGLOBIN 10.2 g/dl (12.0-15.5)
== END 2021-02-12 18:20 | disposition home or self-care (01) ==
LOC: M ED 11:07 → M ED INP 14:15 → M MS5PR 18:55
PROVIDERS: ADMIT Plastic Surgery Surgery of the Hand; ATTEND Plastic Surgery Surgery of the Hand
DX: L76.32 Postprocedural hematoma of skin and subcutaneous tissue following other procedure (principal); F64.9 Gender identity disorder, unspecified; N62 Hypertrophy of breast; F32.9 Major depressive disorder, single episode, unspecified; I10 Essential (primary) hypertension; Z86.008 Personal history of in-situ neoplasm of other site; Z85.89 Personal history of malignant neoplasm of other organs and systems; Z79.899 Other long term (current) drug therapy; Z88.5 Allergy status to narcotic agent
CPT/HCPCS: 21501; 36415; 36430; 80053; 85025; 85027; 86850; 86900; 86901; 86920; 87631; 88304; 96360; 99284; G0378; J0690; J1170; J2175; J2405; P9016